=== PATIENT | male | born 1950 | race Caucasian/White ===

== ENCOUNTER 2022-01-16 07:31 | Outpatient (RCR) | payer MEDICARE, OTHER, SELFPAY ==
[2021-10-18 13:03] VITALS: BMI 35.2
--- NOTE | 2022-01-09 07:58 | PCWOUND ---
CWON NOTE patient's spouse contacted office to cancel appointment for today. Patient not feeling well. Will keep his scheduled appointment for Saturday01/12/22.
== END 2022-01-16 23:59 | disposition home or self-care (01) ==
LOC: ANHWOC 07:31
PROVIDERS: PCP Physician Assistant Medical; Visit Provider Physician Assistant Medical
DX: L97.919 Non-pressure chronic ulcer of unspecified part of right lower leg with unspecified severity (principal); L97.929 Non-pressure chronic ulcer of unspecified part of left lower leg with unspecified severity
CPT/HCPCS: 29581; 99214; 99215; A9270; G0463

== ENCOUNTER 2022-04-23 08:02 | Outpatient (RCR) | payer MEDICARE, OTHER, SELFPAY ==
[2022-01-17 00:05] VITALS: BMI 35.2
--- NOTE | 2022-02-22 09:15 | PCWOUND ---
WOCN NOTE Spoke with patient's spouse who states they need to cancel appointment for today due to patient illness. Rescheduled for next 03/01/22 at 10:00AM
== END 2022-04-23 23:59 | disposition home or self-care (01) ==
LOC: ANHWOC 08:02
PROVIDERS: PCP Physician Assistant Medical; Visit Provider Physician Assistant Medical
DX: L97.919 Non-pressure chronic ulcer of unspecified part of right lower leg with unspecified severity (principal); L97.929 Non-pressure chronic ulcer of unspecified part of left lower leg with unspecified severity
CPT/HCPCS: 29581; 99213; A9270; G0463

== ENCOUNTER 2022-07-16 07:20 | Outpatient (RCR) | payer MEDICARE, OTHER, SELFPAY ==
[2022-04-24 00:03] VITALS: BMI 35.2
--- NOTE | 2022-07-04 09:13 | PCWOUND ---
Patient with bilateral lower extremity venous stasis ulcers due to secondary lymphedema from chronic venous insufficiency( ICD 10: L97.919 and L97.929). Patient was seen on 06/11/22 for topical wound care treatment. Measurements of wounds are on subsequent note. Patient performs daily dressing changes using Gentamicin ointment to the wound bed for topical antibiotic coverage and autolytic debridement. He covers wounds with Mepilex transfer, 4x4 gauze pads and an ABD pad, then wraps with gauze roll. Dressings are held in place with medipore tape. Patient will continue to perform daily dressing changes for at least 30 days or until wounds are healed. Patient wears velcro compression wraps to the bilateral lower legs to control edema. Patient in need of wound care supplies at this time, will order 4x4 Gauze pads, Gauze rolls, medipore tape and ABD pads for a 30 day supply.
--- NOTE | 2022-07-09 12:34 | PCWOUND ---
Patient did not show up for his scheduled appointment. Left message for patient with no return call at this time.
== END 2022-08-05 23:59 | disposition home or self-care (01) ==
LOC: ANHWOC 07:20
PROVIDERS: PCP Physician Assistant Medical; Visit Provider Family Medicine
DX: L97.919 Non-pressure chronic ulcer of unspecified part of right lower leg with unspecified severity (principal); L97.929 Non-pressure chronic ulcer of unspecified part of left lower leg with unspecified severity
CPT/HCPCS: 99212; 99213; A9270; G0463

== ENCOUNTER 2022-11-08 07:24 | Outpatient (RCR) | payer MEDICARE, OTHER, SELFPAY ==
[2022-08-06 00:02] VITALS: BMI 35.2
--- NOTE | 2022-09-03 08:01 | PCWOUND ---
Patients called to cancel appointment for today due to patient being in the hospital. Will contact wound center once he is home and strong enough to make it to an appointment.
== END 2022-11-11 23:59 | disposition home or self-care (01) ==
LOC: ANHWOC 07:24
PROVIDERS: PCP Physician Assistant Medical; Visit Provider Family Medicine
DX: L97.919 Non-pressure chronic ulcer of unspecified part of right lower leg with unspecified severity (principal); L97.929 Non-pressure chronic ulcer of unspecified part of left lower leg with unspecified severity; L97.901 Non-pressure chronic ulcer of unspecified part of unspecified lower leg limited to breakdown of skin
CPT/HCPCS: 29581; 99212; 99213; A9270; G0463

== ENCOUNTER 2022-12-13 07:21 | Outpatient (RCR) | payer MEDICARE, OTHER, SELFPAY ==
[2022-11-12 00:03] VITALS: BMI 35.2
--- NOTE | 2023-01-07 10:45 | PCWOUND ---
WOCN NOTE Patients spouse called to cancel for today. patient still not feeling well. They will call back to reschedule when he is feeling better.
== END 2023-02-26 23:59 | disposition home or self-care (01) ==
LOC: ANHWOC 07:21
PROVIDERS: PCP Physician Assistant Medical; Visit Provider Family Medicine
DX: L97.919 Non-pressure chronic ulcer of unspecified part of right lower leg with unspecified severity (principal); L97.929 Non-pressure chronic ulcer of unspecified part of left lower leg with unspecified severity; L97.901 Non-pressure chronic ulcer of unspecified part of unspecified lower leg limited to breakdown of skin
CPT/HCPCS: 99213; A9270; G0463

== ENCOUNTER 2023-06-04 07:06 | Outpatient (RCR) | payer MEDICARE, OTHER, SELFPAY ==
--- NOTE | 2023-06-24 08:44 | PCWOUND ---
Spoke with patient's Tori, who states that patient has no open areas on bilateral lower legs. Appointment for tomorrow(06/25/23) has been canceled. Patient or spouse to contact wound center for any questions or concerns.
== END 2023-08-05 23:59 | disposition home or self-care (01) ==
LOC: ANHWOC 07:06
PROVIDERS: PCP Physician Assistant Medical; Visit Provider Physician Assistant Medical
DX: L97.919 Non-pressure chronic ulcer of unspecified part of right lower leg with unspecified severity (principal); L97.929 Non-pressure chronic ulcer of unspecified part of left lower leg with unspecified severity
CPT/HCPCS: 99213; 99214; G0463

== ENCOUNTER 2023-11-14 07:20 | Outpatient (RCR) | payer MEDICARE, OTHER, SELFPAY ==
--- NOTE | 2023-09-12 09:51 | PCWOUND ---
WOCN Note Patient's Tori called office to cancel appointment for tomorrow 09/13/23 as patient is currently admitted to the hospital for his A-FIB and possibly cellulitis in the right lower extremity. Spouse will contact the office once he is discharged to reestablish care.
== END 2023-11-14 23:59 | disposition home or self-care (01) ==
LOC: ANHWOC 07:20
PROVIDERS: PCP Physician Assistant Medical; Visit Provider Physician Assistant Medical
DX: L97.919 Non-pressure chronic ulcer of unspecified part of right lower leg with unspecified severity (principal); L97.929 Non-pressure chronic ulcer of unspecified part of left lower leg with unspecified severity
CPT/HCPCS: 99213; 99214; G0463

== ENCOUNTER 2023-12-26 07:10 | Outpatient (RCR) | payer MEDICARE, OTHER, SELFPAY | END 2024-02-26 23:59 | disposition home or self-care (01) | LOC: ANHWOC 07:10 | PROVIDERS: PCP Physician Assistant Medical; Visit Provider Physician Assistant Medical | DX: L97.919 Non-pressure chronic ulcer of unspecified part of right lower leg with unspecified severity (principal); L97.929 Non-pressure chronic ulcer of unspecified part of left lower leg with unspecified severity | CPT/HCPCS: 99212; 99213; 99214; G0463 ==